=== PATIENT | female | born 1990 | race Caucasian/White ===

== ENCOUNTER 2021-03-03 10:01 | Outpatient (RCR) | payer BC, SELFPAY ==
[2021-03-03] MEDS: RHO(D) IMMUNE GLOBULIN 300 MCG/2 ML SYRINGE IM (13:37)
[2021-05-08] VITALS (11 sets, daily range): BP systolic 111–118; BP diastolic 72–74; PULSE 85–98; O2SAT 99–100
== END 2021-06-01 23:59 | disposition home or self-care (01) ==
LOC: ANHLAB 10:01
PROVIDERS: Visit Provider Obstetrics & Gynecology
DX: Z29.13 Encounter for prophylactic Rho(D) immune globulin (principal); O36.0190 Maternal care for anti-D [Rh] antibodies, unspecified trimester, not applicable or unspecified; Z3A.00 Weeks of gestation of pregnancy not specified
CPT/HCPCS: 36415; 85461; 90384; 96372; J2790

== ENCOUNTER 2021-03-21 10:30 | Outpatient (RCR) | payer BC, SELFPAY ==
[2021-03-21 09:33] VITALS: BMI 23.1
[2021-03-21 09:37] VITALS: BMI 23.1
== END 2021-06-04 13:15 | disposition home or self-care (01) ==
LOC: ANHDMC 10:30
PROVIDERS: Visit Provider Obstetrics & Gynecology
DX: O24.319 Unspecified pre-existing diabetes mellitus in pregnancy, unspecified trimester (principal); Z3A.00 Weeks of gestation of pregnancy not specified; Z71.3 Dietary counseling and surveillance; Z71.89 Other specified counseling
CPT/HCPCS: 97802; G0108

== ENCOUNTER 2021-05-08 14:52 | Outpatient (RCR) | payer BC, SELFPAY ==
[2021-03-27 15:25] VITALS: BP 108/69; PULSE 87
[2021-04-04 17:21] VITALS: BP 121/72; PULSE 77
[2021-04-10 16:29] VITALS: BP 119/69; PULSE 84
[2021-04-19 09:56] VITALS: BP 111/78; PULSE 109
[2021-04-24 16:11] VITALS: BP 114/75; PULSE 88
[2021-05-02 14:05] VITALS: PULSE 96
[2021-05-08 15:48] VITALS: BP 112/72; PULSE 98
== END 2021-05-29 09:33 | disposition home or self-care (01) ==
LOC: ANHOBOP 14:52
PROVIDERS: Visit Provider Obstetrics & Gynecology
DX: O24.419 Gestational diabetes mellitus in pregnancy, unspecified control (principal); Z3A.32 32 weeks gestation of pregnancy; Z3A.33 33 weeks gestation of pregnancy; Z3A.34 34 weeks gestation of pregnancy; Z3A.35 35 weeks gestation of pregnancy; Z3A.36 36 weeks gestation of pregnancy; Z3A.37 37 weeks gestation of pregnancy; Z3A.38 38 weeks gestation of pregnancy
CPT/HCPCS: 59025

== ENCOUNTER 2021-05-15 00:05 | Inpatient (IN) | payer BC, SELFPAY ==
[2021-05-15] VITALS (51 sets, daily range): BP systolic 54–135; BP diastolic 39–86; PULSE 67–130; RESP 16–18; TEMP 36.5–37.2; O2SAT 97–100; BMI 21.9
[2021-05-15] MEDS: LACTATED RINGERS 1,000 ML 125 ML IV CONT (01:38)
--- NOTE | 2021-05-15 01:49 | LDADM ---
This patient, Brooklynn Peacock, was admitted to Labor/Delivery/Recovery 105 on 05/15/21 at 00:05. Plans for labor, pain management and were discussed with patient. Patient/family oriented to hospital policies and general routines including ID bracelet, bed and alarms, visiting hours, pain management, procedures, bathroom and other care routines, personal items, smoking policy, room service/diet and guest tray routines, security routines, and visiting hours. Patient/Family are encouraged to report perceived risks to care and to ask questions if they do not understand what they are told or what they should do. See OBIX for further documentation.
[2021-05-15 01:53] LABS: Glucose Point of Care 94 mg/dl (65-105)
[2021-05-15 02:00] LABS: Basophils Percent Auto 0.2 % (0.2-1.2); Eosinophils Absolute Auto 0.1 K/mm3 (0-0.3); Eosinophils Percent Auto 0.9 % (0-4.4); Hematocrit 33.6 % (37.0-47.0); Immature Granulocyte Absolute 0.05 K/mm3 (0.00-0.031); Immature Granulocyte Percent A 0.6 % (0-0.5); Lymphocytes Absolute Auto 1.62 K/mm3 (0.9-3.2); Mean Corpuscular HGB Conc 32.7 g/dl (32-36); Mean Corpuscular Hemoglobin 28.7 pg (26-34); Mean Corpuscular Volume 87.7 fl (80-100); Mean Platelet Volume 12.1 fl (7.4-10.4); Monocytes Absolute Auto 0.6 K/mm3 (0.1-0.6); Monocytes Percent Auto 7.2 % (2.6-8.5); Neutrophils Absolute Auto 5.7 K/mm3 (1.3-6.7); Neutrophils Percent Auto 71.1 % (45.5-73.1); Platelet Count Result 265 k/mm3 (150-375); Red Blood Count 3.83 M/mm3 (4.2-5.4); Red Cell Distribution Width 14.6 % (11.5-14.5); White Blood Count 8.1 K/mm3 (4.5-10.0)
[2021-05-15 05:07] LABS: Glucose Point of Care 108 mg/dl (65-105)
--- NOTE | 2021-05-15 05:52 | WPDANESEPP ---
Anes - Eval Pre Procedure Procedure: labor epidural Date/Time: 05/15/21 05:52 Surgeon: azeem Pre Op Diagnosis: Contractions Patient Data Age: 30 Gender: F Height: 1.75 m Weight: 67.27 kg Last Vital Signs Temp 36.5 C 05/15/21 05:37 Pulse 76 05/15/21 05:46 Resp 18 05/15/21 05:37 BP 83/65 L 05/15/21 05:46 Allergies Allergy/AdvReac Type Severity Reaction Status Date / Time Sulfa (Sulfonamide Allergy Unknown Verified 02/26/19 13:47 Antibiotics) Home Medications Medication Instructions Recorded Confirmed Type PNV cmb#95-ferrous fumarate-FA 1 tablet PO DAILY 02/26/19 05/15/21 History [] qbnqafiyga-kaewvyrehhcrl-qmuz 1 tablet PO Q6H PRN 04/04/21 05/15/21 History [Fioricet] Laboratory Tests 05/15/21 05/15/21 05/15/21 01:45 01:45 01:45 WBC 8.1 K/mm3 K/mm3 (4.5-10.0) RBC 3.83 M/mm3 L M/mm3 (4.2-5.4) Hgb 11.0 g/dL L g/dL (12.0-15.0) Hct 33.6 % L % (37.0-47.0) MCV 87.7 fl fl (80-100) MCH 28.7 pg pg (26-34) MCHC 32.7 g/dl g/dl (32-36) RDW 14.6 % H % (11.5-14.5) Plt Count 265 k/mm3 k/mm3 (150-375) MPV 12.1 fl H fl (7.4-10.4) Immature Gran % (Auto) 0.6 % H % (0-0.5) Neut % (Auto) 71.1 % % (45.5-73.1) Lymph % (Auto) 20.0 % % (18.3-44.2) [place] % (Auto) 7.2 % % (2.6-8.5) Eos % (Auto) 0.9 % % (0-4.4) Baso % (Auto) 0.2 % % (0.2-1.2) Lymph # (Auto) 1.62 K/mm3 K/mm3 (0.9-3.2) [place] # (Auto) 0.6 K/mm3 K/mm3 (0.1-0.6) Eos # (Auto) 0.1 K/mm3 K/mm3 (0-0.3) Baso # (Auto) 0.0 K/mm3 K/mm3 (0.0-0.1) Abs Immat Gran (auto) 0.05 K/mm3 H K/mm3 (0.00-0.031) Absolute Neuts (auto) 5.7 K/mm3 K/mm3 (1.3-6.7) Absolute Nucleated RBC 0.0 K/mm3 K/mm3 (0.0-0.012) Nucleated RBC % 0.0 % % (0.0-0.2) POC Capillary Glucose RPR Pending Blood Type O Negative Antibody Screen Negative 05/15/21 05/15/21 01:48 05:03 WBC RBC Hgb Hct MCV MCH MCHC RDW Plt Count MPV Immature Gran % (Auto) Neut % (Auto) Lymph % (Auto) [place] % (Auto) Eos % (Auto) Baso % (Auto) Lymph # (Auto) [place] # (Auto) Eos # (Auto) Baso # (Auto) Abs Immat Gran (auto) Absolute Neuts (auto) Absolute Nucleated RBC Nucleated RBC % POC Capillary Glucose 94 mg/dl mg/dl 108 mg/dl H mg/dl (65-105) (65-105) RPR Blood Type Antibody Screen Patient hx anesthesia problems: none Family hx anesthesia problems: none Results Review: All pre-operative results and documents have been reviewed as part of the pre-operative evaluation. [facility] Family History Family History (Updated 05/15/21 @ 02:04 by Elsie Dowell RN) Grandparent Diabetes mellitus Cancer Grandparent Chronic obstructive pulmonary disease Father Hypertension Social History Social History Smoking status: Never smoker Second hand tobacco smoke exposure: No Substance use: never Spiritual care concerns: No Exam Day of Procedure 05/15/21 05:52
[2021-05-15 06:02] LABS: Rapid Plasma Reagin Non-Reactive (NonReactive)
[2021-05-15] MEDS: OXYTOCIN 30 UNITS/NS 500 ML 30 UNITS/500 ML BAG 999 UNITS IV CONT (06:16)
--- NOTE | 2021-05-15 07:06 | WPDOBADMIT ---
Obstetrics - Admit Note Admission Note: record reviewed. Additions to the history and/or subsequent changes in the physical findings follow. 30 y/o at 39 2/7 weeks here with contractions. She was found not to be in labor, but NST was not reactive, but she was kept for observation. Then she suddenly developed contractions again and her cervix dilated quickly. I was phoned when her cervix was completely dilated and asked to come in. AVSS NST reactive TOCO: contractions irreguarly Accuchecks normal. See delivery note for further details. A: IUP at term with labor. A1DM. P: See delivery note.
--- NOTE | 2021-05-15 07:07 | P.DS_ITS ---
DS: Admitting Diagnosis Discharge Date 05/16/21 Admitting Diagnosis IUP at 39 2/7 weeks Labor A1 DM DS: Discharge Diagnosis Discharge Diagnosis (1) (normal spontaneous vaginal delivery): Code(s): O80 - Encounter for full-term uncomplicated delivery Status: Acute (2) Gestational diabetes mellitus: Code(s): O24.419 - Gestational diabetes mellitus in , unspecified control Status: Acute OB - DS: Summary OB Procedures : None OB Procedures Intrapartum: Spontaneous Vag Delivery OB Procedures: : RHo (D) lg Time Spent with Patient Time attestation: Total time spent providing and/or coordinating discharge services: DS: Data Data Completed and Pending Labs on day of discharge: Labs from last 24 hours 05/15/21 05/15/21 05/15/21 05:03 01:48 01:45 WBC RBC Hgb Hct MCV MCH MCHC RDW Plt Count MPV Immature Gran % (Auto) Neut % (Auto) Lymph % (Auto) [place] % (Auto) Eos % (Auto) Baso % (Auto) Lymph # (Auto) [place] # (Auto) Eos # (Auto) Baso # (Auto) Abs Immat Gran (auto) Absolute Neuts (auto) Absolute Nucleated RBC Nucleated RBC % POC Capillary Glucose 108 H 94 RPR Blood Type O Negative Antibody Screen Negative 05/15/21 05/15/21 01:45 01:45 WBC 8.1 RBC 3.83 L Hgb 11.0 L Hct 33.6 L MCV 87.7 MCH 28.7 MCHC 32.7 RDW 14.6 H Plt Count 265 MPV 12.1 H Immature Gran % (Auto) 0.6 H Neut % (Auto) 71.1 Lymph % (Auto) 20.0 [place] % (Auto) 7.2 Eos % (Auto) 0.9 Baso % (Auto) 0.2 Lymph # (Auto) 1.62 [place] # (Auto) 0.6 Eos # (Auto) 0.1 Baso # (Auto) 0.0 Abs Immat Gran (auto) 0.05 H Absolute Neuts (auto) 5.7 Absolute Nucleated RBC 0.0 Nucleated RBC % 0.0 POC Capillary Glucose RPR Non-reactive Blood Type Antibody Screen Discharge Plan Discharge Attending physician on discharge: Toby Red Discharging Clinician: Toby Red Patient Disposition: Home, Self-Care Activity: pelvic rest Diet: regular Discharge Instructions: Call or return if temperature above 100.4? F, increased abdominal pain, increased vaginal bleeding or any new problems. Stand Alone Forms: General Discharge Information Follow-up/Referrals: Toby Red MD [Physician] - 6 Weeks Discharge Medications: New ibuprofen 600 mg tablet 600 mg PO Q6H PRN (Reason: cramps) Qty: 30 RF: 0 Continued PNV cmb#95-ferrous fumarate-FA [] 28 mg iron- 800 mcg Tablet 1 tablet PO DAILY RF: 0 cubdnbhbqh-rmsjnacdozovt-mhui [Fioricet] 50-325-40 mg Tablet 1 tablet PO Q6H PRN (Reason: Migraine Headache) RF: 0 Date of admission: 05/15/21 00:05 Admitting Provider: Toby Red Attending physician on admission: Toby Red Condition: Stable
--- NOTE | 2021-05-15 07:07 | P.PCNOB_ITS ---
OB - Delivery Note Procedure Delivery date: 05/15/21 Procedure: Events: Gestational Diabetes Induction method: None Delivery monitor: External FHT and External Uterine Route of delivery: Laceration Description: Perineal - 2nd Degree Delivery repair: vicryl (3-0) Specimen: Yes (cord blood, placenta) Quantitative Blood Loss (ml): 75 Anesthesia type: Local (1% lidocaine) Disposition: PACU Complications: None Narrative: 30 y/o at 39 weeks gestation who presented to the hospital with complaint of contractions. She was found not to be actively ina, but the NST was nonreactive. She was kept for extended observation. She then had a sudden onset of pain. She was found to have complete cervical dilation. I was notified at this point. She received an epidural for pain control, but her labor progressed rapidly. The baby delivered precipitously. The cord was clamped and cut. The was handed off the field. Cord blood was collected. The placenta delivered spontaneously and was grossly normal in appearance. The usual 3 vessel cord was noted. A second degree midline perineal laceration was sustained. This was infiltrated with 16 mL of 1% lidocaine and reapproximated using 3 0 Vicryl in the usual layered fashion. Excellent hemostasis resulted as did excellent reapproximation of the normal anatomy. Needle and instrument counts were correct. The patient was taken to recovery room in stable condition. The infant went to the nursery in stable condition. [place] Baby Date of : 05/15/21 Time of : 06:10 Weeks of gestation at delivery: 39 Infant gender: Female Weight (pounds): 7 Weight (ounces): 13 presentation: vertex Placenta delivery description: Spontaneous and Normal Configuration Cord Vessel Description: 3 Vessels and Delayed Cord Clamping score one minute: 8 score five minutes: 9
[2021-05-15] MEDS: IBUPROFEN 600 MG TABLET PO ×2 (08:01→23:48)
[2021-05-15] MEDS: BENZOCAINE 20% AER SPR (*SP) 56 GM CAN 1 SPRAY TOPICAL (08:07)
[2021-05-15] MEDS: WITCH HAZEL 40 PADS 1 PAD TOPICAL (08:07)
--- NOTE | 2021-05-15 09:23 | PC.NURSE ---
Patient transferred to post room #291 via wheelchair along with baby, who is in her crib. Support person present. Oriented to unit, room, information board, rooming in, admission packet and security measures. Patient verbalizes understanding.
--- NOTE | 2021-05-15 10:36 | PC.NURSE ---
1010 -Introductions were made and mother led the discussion of her desires and plan to feeding her baby. Reviewed handwashing to prevent infection before and after taking care of her baby. Mother verbalizes she is unable to independently latch at this time related to sleepiness. Blood sugar was checked and was good . Discussed how to watch for early feeding cues, place skin to skin, then feeding baby when is ready or every 2-3 hours. Reviewed positioning/alignment with the use of the mom and baby guide. Encouraged mother with skin to skin. Encourage mom with infant to the left breast in football position using nipple to nose with asymmetrical 140-degree latch. is unable to latch and is sleepy. Mother demonstrated hand expression and placing colostrum into the infants mouth with the use of a tool. Infant placed vertically between breast, mom encouraged with stimulating infant and waiting for feeding cues. Responding to feeding cues we collaborated to the left breast in football position. remains sleepy. Skin to skin utilized between breast. Mother responds to feeding cues and lowers to the right breast in football position. latched but mom has nipple discomfort. Mother demonstrated detaching from the breast. Skin to skin, hand expression, then feeding cues visualized. Hand expression demonstrated on the right breast and colostrum placed into infants mouth, then latched optimally in football position. She denies any nipple discomfort. Reviewed there is to be no pain with , how to detach from the breast, visuals to watch for to confirm effective . Suck/swallow ratios for rocking motion visualized and education to mother was verbally understood. Reviewed effective latching with resources using a tool/handout/mom and baby guide. Nipple tenderness is relieved with improving positioning and effective latching. Use of warm, wet compress to nipples and air dry for improved comfort. was able to maintain effective latch. Mother voiced understanding watching for feeding cues for responsive feeding, how to stimulate skin to skin/ hand expressed colostrum to initiate to feed when she sees feeding cues, 8-12 times in 24 hours approximately every 2-3 hours from the start of the last feeding and also to call for assistance if infant doesn't latch or she has discomfort with nursing. Reported to primary RN.
[2021-05-15] MEDS: MULTIVIT/MIN/PREN/FOL AC/IRON TABLET 1 TAB PO (11:35)
[2021-05-15] MEDS: CALCIUM CARBONATE (TUMS) 500 MG (200 MG ELEMENTAL) (11:35)
[2021-05-16 04:49] VITALS: BP 94/65; PULSE 76; RESP 18; TEMP 36.4; O2SAT 99
[2021-05-16 05:17] LABS: Hematocrit 28.1 % (37.0-47.0)
--- NOTE | 2021-05-16 07:36 | WPDANLDPN2 ---
Anes-Prog Note L&D Date/Time: 05/16/21 07:36 Comfortable throughout: labor and delivery Neuraxial method: epidural Epidural/Spinal procedure site: clean & non-tender Neuro status: Neuro function grossly intact. Cardiovascular status: normal Respiratory status: normal Airway patency: baseline Mental status: baseline Post-Op hydration status: normal Vital Signs: Last Vital Signs Temp 36.4 C L 05/16/21 04:49 Pulse 76 05/16/21 04:49 Resp 18 05/16/21 04:49 BP 94/65 L 05/16/21 04:49 Pulse Ox 99 05/16/21 04:49 Pain score (VAS): 10 I/O: Intake & Output 05/15/21 05/15/21 05/16/21 15:59 23:59 07:59 Output Total 50 Balance -50 Post-procedural complaints: none Patient feedback: Patient satisfied with anesthetic care.
[2021-05-16 08:10] VITALS: BP 107/71; PULSE 85; RESP 16; TEMP 36.9; O2SAT 99
[2021-05-16] MEDS: MULTIVIT/MIN/PREN/FOL AC/IRON TABLET 1 TAB PO (09:01)
[2021-05-16] MEDS: POLYSACCHARIDE IRON COMPLEX 150 MG CAPSULE PO (09:01)
[2021-05-16] MEDS: DOCUSATE SODIUM 100 MG CAPSULE PO (09:01)
[2021-05-16] MEDS: IBUPROFEN 600 MG TABLET PO (09:01)
--- NOTE | 2021-05-16 09:08 | PM.OBPNVD ---
OB - PN: Subj Subjective Date/time seen: 05/16/21 09:08 Narrative: Pain OK. Would like to go home. OB - PN: Obj Data Labs CBC & Chem 7: 05/16/21 04:39 Labs: Laboratory Results - last 24 hr 05/16/21 05/16/21 04:39 04:39 Hgb 9.0 L Hct 28.1 L Blood Type O Negative Antibody Screen Negative Screen Negative Baby's Blood Type O pos Baby's MEME Negative Doses of RhIg Required 1 OB - PN A/P Plan Comments: A: PPD#1, doing well. P: Home to f/u 6 weeks. Exam Psych: Other: AVSS ABD soft, nontender, fundus firm EXT nontender
--- NOTE | 2021-05-16 09:39 | PC.NURSE ---
0237 - Mother led the conversation with regards to her experience feeding her baby so far. has had appropriate feedings in the past 24 hours and meets the outcomes for weight, output and jaundice. Mother states she feels confident to continue effectively her infant at home. Reviewed production of human milk, transition of milk, signs of adequate intake and engorgement prevention/relief and when to call the infant care provider using the mom and baby guide. Reviewed community resources and outpatient services as listed in the mom and baby guide. Reinforced watching for feeding cues with responsive feeding and how to stimulate to initiate feeding three hours from the start of the last feeding 8-12 times in 12 hours. Reviewed optimal latching and visuals that indicate effective . Mother voiced understanding of information shared. Reported to primary RN.
[2021-05-16] MEDS: RHO(D) IMMUNE GLOBULIN 300 MCG/2 ML SYRINGE IM (10:12)
--- NOTE | 2021-05-16 10:14 | PC.NURSE ---
Patient viewed the discharge video Mother & Baby Care, The First Two Weeks . Patient was given the opportunity and encouraged to ask questions. Patient verbalized understanding of information shared and has been given the mother/baby guide for home reference.
[2021-05-17 08:39] VITALS: BP 124/82; PULSE 81; RESP 20; TEMP 36.9; O2SAT 100
== END 2021-05-16 12:50 | disposition home or self-care (01) | DRG 807 ==
LOC: ANHLDR 01:33 → ANHOB2 10:36
PROVIDERS: Admitting Provider Obstetrics & Gynecology; Visit Provider Obstetrics & Gynecology
DX: O62.3 Precipitate labor (principal); Z37.0 Single live birth; O24.420 Gestational diabetes mellitus in childbirth, diet controlled; O70.1 Second degree perineal laceration during delivery; O76 Abnormality in fetal heart rate and rhythm complicating labor and delivery; O69.81X0 Labor and delivery complicated by cord around neck, without compression, not applicable or unspecified; Z3A.39 39 weeks gestation of pregnancy
CPT/HCPCS: 36415; 82948; 85014; 85018; 85025; 85461; 86592; 86850; 86900; 86901; 88307; 90384; A9270; J2590; J2790; J2795; J7120